=== PATIENT | male | born 2000 | race Caucasian/White ===

== ENCOUNTER 2022-05-11 20:31 | Emergency (ER) | payer OTHER, SELFPAY ==
[2022-05-11] VITALS (8 sets, daily range): BP systolic 115–144; BP diastolic 56–75; PULSE 68–82; RESP 15–16; TEMP 36.4; O2SAT 98–100; BMI 25.9
--- NOTE | 2022-05-11 20:40 | DI.RAD.S_ITS ---
PROCEDURE: XR CHEST 1V INDICATIONS: chest pain TECHNIQUE: One view of the chest was acquired. COMPARISON: [facility], , CHEST 2 VIEW, 06/07/2010, 22:56. FINDINGS: Surgical changes and devices: None. Lungs and pleura: Lungs are clear. No pleural effusions or pneumothorax. Mediastinum: Mediastinal contours appear normal. Heart size is normal. Bones and chest wall: No suspicious bony lesions. Overlying soft tissues appear unremarkable. IMPRESSION: 1. No acute cardiopulmonary disease. Dictated by: Aaron Du M.D. on 05/11/2022 at 21:18 Approved by: Aaron Du M.D. on 05/11/2022 at 21:18
[2022-05-11 21:23] LABS: Add Manual Diff / Slide Review NO; Basophils Absolute Auto 0 /uL (0-100); Basophils Percent Auto 0.6 % (0-2); Eosinophils Absolute Auto 200 /uL (0-450); Eosinophils Percent Auto 3.4 % (2-4); Hematocrit 44.3 % (41-53); Hemoglobin 15.4 g/dL (13.5-17.5); Lymphocytes Absolute Auto 1700 /uL (1100-4500); Lymphocytes Percent Auto 30.7 % (25-40); Mean Corpuscular HGB Conc 34.7 % (30-36); Mean Corpuscular Hemoglobin 29.9 PG (26-34); Mean Corpuscular Volume 86.3 fL (80-100); Monocytes Absolute Auto 400 /uL (0-900); Monocytes Percent Auto 7.7 % (3-14); Neutrophils Absolute Auto 3300 /uL (1500-7000); Neutrophils Percent Auto 57.6 % (50-75); Platelet Count 224 X10^3/uL (150-400); Red Blood Cell Count 5.13 X10^6/uL (4.5-5.9); Red Cell Distribution Width 12.6 % (11.6-14.8); White Blood Cell Count 5.7 X10^3/uL (4.5-11.0)
[2022-05-11 21:25] LABS: INR 1.1 (0.9-1.3); Prothrombin Time 12.4 SECONDS (10.1-12.7)
[2022-05-11 21:28] LABS: PTT Partial Thromboplastin Tim 32 SECONDS (26-36)
[2022-05-11 21:29] LABS: Alanine Aminotransferase 26 IU/L (<50); Albumin 4.9 g/dL (3.5-5.0); Albumin Globulin Ratio 1.6 (1.0-2.8); Alkaline Phosphatase 74 U/L (38-126); Aspartate Aminotransferase 23 IU/L (17-59); BUN Creatinine Ratio 16.9 (6-22); Bilirubin Total 1.2 mg/dL (0.2-1.3); Blood Urea Nitrogen 15 mg/dL (9-20); Calcium 9.4 mg/dL (8.4-10.2); Carbon Dioxide 25 mmol/L (22-32); Chloride 103 mmol/L (98-107); Creatine Kinase 64 U/L (55-170); Estimated Glomerular Filt Rate > 60 mL/min (>60); Globulin 3.1 g/dL (1.7-4.1); Glucose 92 mg/dL (70-100); HEMOLYSIS < 15 (0-50); Lipase 109 U/L (23-300); Magnesium 1.9 mg/dL (1.6-2.3); Potassium 3.9 mmol/L (3.4-5.1); Sodium 140 mmol/L (137-145)
[2022-05-11 21:40] LABS: Troponin I < 0.012 ng/mL (0.01-0.034)
--- NOTE | 2022-05-11 23:22 | ED.CHESTPAIN ---
HPI - Chest Pain General Chief Complaint: Chest Pain Stated Complaint: Lung/ABD pain Time Seen by Provider: 05/11/22 21:19 Source: patient Mode of arrival: Ambulatory Limitations: no limitations History of Present Illness HPI narrative: Otherwise healthy 21-year-old gentleman was walking around the store at 30 this afternoon not doing any particular heavy lifting describes no trauma, no recent illnesses. He describes an acute right-sided mid axillary line mid chest wall acute pain worse with deep breathing. He was initially seen in the walk-in clinic and instructed to come to the emergency department. He notes over the interval that the pain has improved. He describes no coughing, hemoptysis, palpitations and no left-sided chest pain. He is had no abdominal pain or tenderness and normal bowel movements. No flank pain and no hematuria or dysuria. Related Data Allergies Allergy/AdvReac Type Severity Reaction Status Date / Time No Known Drug Allergies Allergy Verified 05/11/22 20:39 Review of Systems Review of Systems Narrative: Remainder of complete review of systems is otherwise unremarkable except for that included in the HPI. Patient History tobacco type: vaping alcohol intake frequency: a few times a week Substance Use Type: does not use Exam Initial Vital Signs Initial Vital Signs: Vital Signs Temperature 97.6 F 05/11/22 20:40 Pulse Rate 82 05/11/22 20:40 Respiratory Rate 15 05/11/22 20:40 Blood Pressure 144/75 H 05/11/22 20:40 Pulse Oximetry 100 05/11/22 20:40 Oxygen Delivery Method 05/11/22 20:40 General: Alert appropriate in no acute distress Respiratory: Able to speak in full sentences, no obvious respiratory distress, no rales or rhonchi. Symmetrical sounds bilaterally with symmetrical chest wall movement Cardiac: Regular rate and rhythm without murmurs Chest: No point tenderness, bruising or rashes. Skin: No obvious rashes, warm and dry Neurologic: Grossly intact no obvious asymmetries or abnormalities Psych: appropriate insight and affect, cooperative Course Orders Ordered: ED Orders 05/11/22 20:40 XR chest 1V Stat EKG-12 Lead Stat 05/11/22 21:07 Complete Blood Count AUTO DIFF Stat Comprehensive Metabolic Panel Stat Lipase Stat Magnesium Stat Partial Thromboplastin Time Stat Prothrombin Time INR Stat Troponin & CK Cardiac Panel Stat Vital Signs Vital signs: Vital Signs - 8 hr 05/11/22 20:40 05/11/22 21:12 05/11/22 21:13 Temperature 97.6 F Pulse Rate 82 79 78 Respiratory Rate 15 Blood Pressure 144/75 H Pulse Oximetry 100 100 100 Oxygen Delivery Method Room Air 05/11/22 21:13 05/11/22 21:30 05/11/22 21:30 Temperature Pulse Rate 70 Respiratory Rate Blood Pressure 131/75 117/68 Pulse Oximetry 100 Oxygen Delivery Method 05/11/22 22:00 05/11/22 22:00 05/11/22 22:30 Temperature Pulse Rate 81 Respiratory Rate Blood Pressure 115/65 118/56 L Pulse Oximetry 100 Oxygen Delivery Method 05/11/22 22:30 05/11/22 23:10 Temperature Pulse Rate 68 Respiratory Rate Blood Pressure 120/70 Pulse Oximetry 100 Oxygen Delivery Method MDM - Chest Pain Lab Data 05/11/22 21:07 05/11/22 21:07 Labs: Lab Results 05/11/22 05/11/22 05/11/22 Range/Units 21:07 21:07 21:07 WBC 5.7 (4.5-11.0) X10^3/uL RBC 5.13 (4.5-5.9) X10^6/uL Hgb 15.4 (13.5-17.5) g/dL Hct 44.3 (41-53) % MCV 86.3 (80-100) fL MCH 29.9 (26-34) PG MCHC 34.7 (30-36) % RDW 12.6 (11.6-14.8) % Plt Count 224 (150-400) X10^3/uL Neut % (Auto) 57.6 (50-75) % Lymph % (Auto) 30.7 (25-40) % [place] % (Auto) 7.7 (3-14) % Eos % (Auto) 3.4 (2-4) % Baso % (Auto) 0.6 (0-2) % Neut # (Auto) 3300 (7307-3672) /uL Lymph # (Auto) 1700 (8601-3772) /uL [place] # (Auto) 400 (0-900) /uL Eos # (Auto) 200 (0-450) /uL Baso # (Auto) 0 (0-100) /uL PT 12.4 (10.1-12.7) SECONDS INR 1.1 (0.9-1.3) APTT 32 (26-36) SECONDS Sodium 140 (137-145) mmol/L Potassium 3.9 (3.4-5.1) mmol/L Chloride 103 (98-107) mmol/L Carbon Dioxide 25 (22-32) mmol/L BUN 15 (9-20) mg/dL Creatinine 0.89 (0.66-1.25) mg/dL Estimated GFR > 60 (>60) mL/min BUN/Creatinine Ratio 16.9 (6-22) Glucose 92 (70-100) mg/dL Calcium 9.4 (8.4-10.2) mg/dL Magnesium 1.9 (1.6-2.3) mg/dL Total Bilirubin 1.2 (0.2-1.3) mg/dL AST 23 (17-59) IU/L ALT 26 (<50) IU/L Alkaline Phosphatase 74 (38-126) U/L Total Creatine Kinase 64 (55-170) U/L CK-MB (CK-2) TNP CK-MB (CK-2) Rel Index TNP Troponin I < 0.012 (0.01-0.034) ng/mL Total Protein 8.0 (6.3-8.2) g/dL Albumin 4.9 (3.5-5.0) g/dL Globulin 3.1 (1.7-4.1) g/dL Albumin/Globulin Ratio 1.6 (1.0-2.8) Lipase 109 (23-300) U/L Imaging Data Chest x-ray: Radiologist's Impression: FINDINGS:? ? Surgical changes and devices:? None.? ? Lungs and pleura:? Lungs are clear.? No pleural effusions or pneumothorax.? ? Mediastinum:? Mediastinal contours appear normal.? Heart size is normal.? ? Bones and chest wall:? No suspicious bony lesions.? Overlying soft tissues appear unremarkable.? ? IMPRESSION:? ? 1.? No acute cardiopulmonary disease. ? ? ? Dictated by: Aaron Du M.D. on 05/11/2022 at 21:18 ? ? MDM Narrative Medical decision making narrative: CC: Right-sided chest wall pain. This is a new presentation, uncertain diagnosis uncertain prognosis Corroborating data: Data collected from: patient, Differential considered: Pneumothorax, pneumonia, pleurisy, mass or tumor, shingles, hematoma, liver abnormality with pain radiating, right renal abnormality Exam documented above, pertinent findings include: Entirely benign exam with pain almost essentially resolved Lab Test results independently reviewed as above. Pertinent findings: Normal chemistries CBC is unremarkable Independently reviewed EKG : Sinus rhythm at a rate of 76. Normal intervals and normal axis. No acute ischemic changes Imaging studies independently reviewed: Chest x-ray shows no acute findings specifically no pneumothorax Discussion: Discussed all lab findings with this gentleman. No evidence of life-threatening abnormality, pneumothorax, infiltrate, effusion, abdominal pathology. Questions are answered. At this point I suspect it is mild pleuritic chest pain and I recommended ibuprofen and Tylenol as well as reviewing anticipated course of symptoms. Questions are answered and he is safe for discharge home Disposition: see below, along with detailed discharge instructions that have been reviewed with patient as well as indications for ED re-evaluation and additional outpatient follow up Discharge Plan Departure Patient Disposition: Home Clinical Impression: Pleurisy Instructions: DI for Pleurisy Activity Restrictions/Additional Instructions: Thank you for coming in today Your blood work was very reassuring. There is no evidence of severe bacterial infection, anemia, electrolyte, kidney or liver abnormalities. Your chest x-ray was very reassuring. I do not see any evidence of masses, tumors, pneumonia, collapsed lung or other findings that might explain your pain. With the pain with deep breathing this is likely pleurisy which is treated with time. Using 400 mg of ibuprofen (2 [id number] pills) and 1 Tylenol every 6 hours can be very helpful in controlling pain. If you find that you are getting worse or develop any new symptoms, please feel free to return to the emergency department for further evaluation. Stand Alone Forms: Patient Portal/API
== END 2022-05-11 23:37 | disposition home or self-care (01) ==
PROVIDERS: Emergency Provider Emergency Medicine
DX: R09.1 Pleurisy (principal); R07.9 Chest pain, unspecified
CPT/HCPCS: 36415; 71045; 80053; 82550; 83690; 83735; 84484; 85025; 85610; 85730; 93005; 99283; 99284